=== PATIENT | female | born 1985 | race African-American/Black ===

== ENCOUNTER 2018-10-16 10:59 | Emergency (ER) | payer BC, OTHER ==
[~2018-10-16] VITALS: Ht 170.2 cm; Wt 91.0 kg
[2018-10-16 14:52] LABS: BASOPHILS % 0.5 % (0.0-2.0); EOSINOPHILS % 2.4 % (0.0-5.0); HEMOGLOBIN. 13.4 g/dL (12.0-16.0); LYMPHOCYTES % 24.4 % (20.0-50.0); MEAN CORPUSCULAR HEMOGLOBIN 30.9 pg (28.0-32.0); MEAN CORPUSCULAR VOLUME 92.2 fL (81.0-99.0); MEAN PLATELET VOLUME 9.5 fl (7.4-10.4); MONOCYTES % 6.6 % (2.0-8.0); NEUTROPHILS % 66.1 % (40.0-76.0); PLATELET 235 x1000/uL (130-400); RED BLOOD CELL COUNT 4.34 mill/uL (4.2-5.4); RED CELL DISTRIBUTION WIDTH 13.4 % (11.6-14.6)
[2018-10-16 14:54] LABS: CHLORIDE 108 mEq/L (98-107)
[2018-10-16 15:07] LABS: HCG SCREEN NEGATIVE
[2018-10-16 18:12] VITALS: BP 124/82
== END 2018-10-16 18:14 | disposition home or self-care (01) ==
LOC: ER 10:59
DX: R07.89 Other chest pain (principal)
CPT/HCPCS: 36415; 71045; 83880; 84484; 84703; 85379; 93005; 99284